=== PATIENT | female | born 2000 | race African-American/Black ===

== ENCOUNTER 2024-12-23 00:06 | Emergency (ER) | payer MEDICAID | END 2024-12-23 01:44 | disposition home or self-care (01) | LOC: MW.ED 00:06 | DX: S05.12XA Contusion of eyeball and orbital tissues, left eye, initial encounter (principal); S05.02XA Injury of conjunctiva and corneal abrasion without foreign body, left eye, initial encounter; Y04.8XXA Assault by other bodily force, initial encounter; Y93.89 Activity, other specified | CPT/HCPCS: 99282; 99284 ==